=== PATIENT | female | born 1995 | race Caucasian/White ===

== ENCOUNTER 2020-06-22 07:58 | Inpatient (IN) | payer MEDICAID ==
[~2020-06-22] VITALS: Ht 149.9 cm; Wt 79.4 kg
[2020-06-22] MEDS ORDERED: PNV91TAB6 PO (08:54)
[2020-06-22] MEDS ORDERED: DEXT 5%/LR + PITOCIN 20UNITS/L 1,000 ML IV SCH ×2 (09:36→21:07)
[2020-06-22] MEDS ORDERED: LACTATED RINGERS 1,000 ML IV SCH ×2 (09:36→09:55)
[2020-06-22] MEDS ORDERED: RHO(D) IMMUNE GLOBULIN 300 MCG/SYR IM ONE (09:45)
[2020-06-22] MEDS ORDERED: LIDOCAINE HCL 1% 20ML VIAL (Pyxis) INJ INFIL SCH (09:45)
[2020-06-22] MEDS ORDERED: PENICILLIN G POTASSIUM 5 MMU in DEXT 5% WATER 100 ML IV SCH (10:00)
[2020-06-22 10:02] LABS: BASOPHILS % 0.4 % (0.0-2.0); HEMATOCRIT. 34.2 % (36.0-48.0); HEMOGLOBIN. 11.6 g/dL (12.0-16.0); LYMPHOCYTES % 20.3 % (20.0-50.0); MEAN CORPUSCULAR HEMOGLOBIN 27.8 pg (28.0-32.0); MEAN CORPUSCULAR VOLUME 81.6 fL (81.0-99.0); MEAN PLATELET VOLUME 7.5 fl (7.4-10.4); MONOCYTES % 7.9 % (2.0-8.0); NEUTROPHILS % 70.4 % (40.0-76.0); PLATELET 329 x1000/uL (130-400); RED BLOOD CELL COUNT 4.18 mill/uL (4.2-5.4); RED CELL DISTRIBUTION WIDTH 15.2 % (11.6-14.6)
[2020-06-22 10:04] LABS: CLARITY URINE CLOUDY (CLEAR); COLOR URINE YELLOW (YELLOW); KETONES URINE TRACE (NEGATIVE); LEUKOCYTE ESTERASE URINE 3+ (NEGATIVE); NITRITE URINE NEGATIVE (NEGATIVE); OCCULT BLOOD URINE 3+ (NEGATIVE); PH URINE 6.5 (4.5-8.0); PROTEIN URINE NEGATIVE (NEGATIVE); SPECIFIC GRAVITY URINE 1.013 (1.005-1.030)
[2020-06-22 10:12] LABS: INR 0.9; PARTIAL THROMBOPLASTIN TIME 28.4 sec (23.4-31.0)
[2020-06-22 10:16] LABS: *AMPHETAMINES SCREEN URINE NEGATIVE (NEGATIVE); *BARBITURATES SCREEN URINE NEGATIVE (NEGATIVE)
[2020-06-22 10:17] LABS: *BENZODIAZEPINES SCREEN URINE NEGATIVE (NEGATIVE); *COCAINE SCREEN URINE NEGATIVE (NEGATIVE); CANNABINOID URINE SCREEN NEGATIVE (NEGATIVE); METHADONE URINE SCREEN NEGATIVE (NEGATIVE); OPIATES URINE SCREEN NEGATIVE (NEGATIVE); PHENCYCLIDINE URINE SCREEN NEGATIVE (NEGATIVE)
[2020-06-22] MEDS ORDERED: DIPHENHYDRAMINE 50MG/ML VIAL IV PRN (12:30)
[2020-06-22] MEDS ORDERED: METOCLOPRAMIDE HCL 10MG/2ML VIAL IV PRN (12:30)
[2020-06-22] MEDS ORDERED: ROPIVACAINE HCL/PF EPIDURAL 200 ML EPI SCH (12:30)
[2020-06-22] MEDS ORDERED: ONDANSETRON HCL 4MG/2ML INJ IV PRN (12:30)
[2020-06-22 12:59] LABS: HEPATITIS B SURFACE ANTIGEN NEGATIVE
[2020-06-22] MEDS ORDERED: PENICILLIN G POTASSIUM 2.5 MMU in DEXTROSE 5% WATER 50 ML IV SCH (14:00)
[2020-06-22] MEDS ORDERED: GADOBENATE DIMEGLUMINE 529 MG/ML 10ML IV ONE (16:56)
[2020-06-22] MEDS ORDERED: GLYCERIN/WITCH HAZEL LEAF MEDICATED PAD TOP PRN (21:15)
[2020-06-22] MEDS ORDERED: BISACODYL 10MG SUPP PR PRN (21:15)
[2020-06-22] MEDS ORDERED: BENZOCAINE/LANOLIN/ALOE VERA SPRAY TOP PRN (21:15)
[2020-06-22] MEDS ORDERED: HEMORRHOIDAL SUPP PR PRN (21:15)
[2020-06-22] MEDS ORDERED: IBUPROFEN 400MG TABLET PO PRN (21:15)
[2020-06-22 22:00] VITALS: BP 109/58
[2020-06-23 04:00] VITALS: BP 121/60
[2020-06-23] MEDS: IBUPROFEN 800MG TABLET PO PRN ×3 (04:35→17:29)
[2020-06-23 07:15] LABS: BASOPHILS % 0.2 % (0.0-2.0); EOSINOPHILS % 0.5 % (0.0-5.0); HEMATOCRIT. 34.3 % (36.0-48.0); HEMOGLOBIN. 11.5 g/dL (12.0-16.0); LYMPHOCYTES % 15.1 % (20.0-50.0); MEAN CORPUSCULAR HEMOGLOBIN 27.4 pg (28.0-32.0); MEAN CORPUSCULAR VOLUME 81.8 fL (81.0-99.0); MEAN PLATELET VOLUME 7.4 fl (7.4-10.4); MONOCYTES % 7.9 % (2.0-8.0); NEUTROPHILS % 76.3 % (40.0-76.0); PLATELET 326 x1000/uL (130-400); RED CELL DISTRIBUTION WIDTH 15.3 % (11.6-14.6)
[2020-06-23 07:50] VITALS: BP 111/58
[2020-06-23] MEDS: FERROUS SULFATE 325MG TABLET PO SCH ×3 (09:15→17:29)
[2020-06-23] MEDS: PRENATAL VIT/FE FUMARATE/FA TABLET PO SCH (09:15)
[2020-06-23] MEDS: SIMETHICONE 80MG TABLET CHEW PO SCH ×3 (09:16→23:51)
[2020-06-23] MEDS: MAGNESIUM/ALUMINUM HYDROXIDE/SIMETHICONE 30ML UDC PO SCH ×2 (13:50→23:51)
[2020-06-23 14:30] VITALS: BP 113/63
[2020-06-23 20:00] VITALS: BP 116/75
[2020-06-23] MEDS ORDERED: DOCUSATE SODIUM 100MG CAPSULE PO SCH (21:00)
[2020-06-24 04:00] VITALS: BP 115/78
[2020-06-24] MEDS: FERROUS SULFATE 325MG TABLET PO SCH (07:30)
[2020-06-24] MEDS: MAGNESIUM/ALUMINUM HYDROXIDE/SIMETHICONE 30ML UDC PO SCH (07:30)
[2020-06-24 08:00] VITALS: BP 119/73
[2020-06-24] MEDS: SIMETHICONE 80MG TABLET CHEW PO SCH (08:00)
[2020-06-24] MEDS: PRENATAL VIT/FE FUMARATE/FA TABLET PO SCH (08:35)
== END 2020-06-24 12:25 | disposition home or self-care (01) | DRG 560 ==
LOC: 8 EST LDRP 07:58 → 8EST 22:00
PROVIDERS: ADMIT Obstetrics & Gynecology; ATTEND Obstetrics & Gynecology
PROC: 10E0XZZ Delivery of Products of Conception, External Approach (ICD-10-PCS; principal; 2020-06-22)
PROC: 00HU33Z Insertion of Infusion Device into Spinal Canal, Percutaneous Approach (ICD-10-PCS; 2020-06-22)
PROC: 3E0R3BZ Introduction of Anesthetic Agent into Spinal Canal, Percutaneous Approach (ICD-10-PCS; 2020-06-22)
DX: O80 Encounter for full-term uncomplicated delivery (principal); Z3A.39 39 weeks gestation of pregnancy; Z37.0 Single live birth; Z91.013 Allergy to seafood; Z79.899 Other long term (current) drug therapy
CPT/HCPCS: 36415; 80051; 80305; 81003; 85025; 86592; 86703; 86762; 86850; 86900; 87340; 96372; 99281; A9577; J2540; J2590; J2795; J7060